=== PATIENT | male | born 1970 | race Two or more races ===

== ENCOUNTER → 2018-11-06 10:30 | Outpatient (CLI) | payer OTHER | END | disposition home or self-care (01) | LOC: LAB 10:30 | DX: E03.8 Other specified hypothyroidism (principal); R10.84 Generalized abdominal pain; E78.49 Other hyperlipidemia; R19.8 Other specified symptoms and signs involving the digestive system and abdomen; K85.90 Acute pancreatitis without necrosis or infection, unspecified ==

== ENCOUNTER 2018-11-06 11:12 | Outpatient (CLI) | payer OTHER | END 2018-11-06 15:39 | disposition home or self-care (01) | LOC: SONOGRAMA 11:12 | DX: R14.0 Abdominal distension (gaseous) (principal); R10.84 Generalized abdominal pain ==